=== PATIENT | male | born 1925 | race Caucasian/White ===

== ENCOUNTER 2016-09-26 08:17 | Observation (INO) | payer OTHER, MEDICARE ==
[~2016-09-26 08:17] MED LIST: ACULAR1 DROP OS; ASPIRIN EC81 MG PO; ATROVENT HFA12.9 GM INH; CEFPODOXIME PR200 MG PO; FLOMAX0.4 MG PO; FUROSEMIDE20 MG PO; GENTAK5 ML OPTH; IPRAT-ALBUT 0.5-3 ML INH; KEFLEX500 MG PO; LISINOPRIL5 MG; LISINOPRIL5 MG PO; METOPROLOL TART50 MG PO; NORCO 10-325 T1 EACH PO; OMEPRAZOLE20 MG PO; ORAL ANALGESIC9 GM MM; PERCOCET 5-3251 EACH PO; PULMICORT0.5 MG/2 M INH
--- NOTE | 2016-09-27 18:35 | EKG ---
[facility] [address] [facility] [place] [address] Signed Sinus rhythm with frequent and consecutive premature ventricular complexes Nonspecific intraventricular block Abnormal ECG No previous ECGs available Confirmed by TOBIAS COULTER MD ([id number] on 09/27/2016 6:35:16 PM Electronically Signed By: TOBIAS COULTER MD 09/27/16 1835 PATIENT NAME: EBER BLACK Electrocardiogram DATE OF : [birth year] PHYSICIAN: TOBIAS COULTER MD REPORT #: [id number] REPORT IS CONFIDENTIAL AND NOT TO BE RELEASED WITHOUT AUTHORIZATION
--- NOTE | 2016-09-27 18:36 | EKG ---
[facility] [address] [place] [address] Signed Sinus bradycardia Nonspecific intraventricular block Abnormal ECG When compared with ECG of 26-SEP-2016 08:52, (Unconfirmed) premature ventricular complexes are no longer present Confirmed by TOBIAS COULTER MD ([id number] on 09/27/2016 6:36:00 PM Electronically Signed By: TOBIAS COULTER MD 09/27/16 1836 PATIENT NAME: EBER BLACK Electrocardiogram DATE OF : [birth year] PHYSICIAN: TOBIAS COULTER MD REPORT #: [id number] REPORT IS CONFIDENTIAL AND NOT TO BE RELEASED WITHOUT AUTHORIZATION
[2017-04-09] MEDS ORDERED: VENTOLIN HFA18 GM INH (12:18)
[2017-04-09] MEDS ORDERED: PLAVIX75 MG PO (12:23)
[2017-04-09] MEDS ORDERED: OXYCODONE HCL10 MG PO (12:27)
[2017-04-09] MEDS ORDERED: PROSTATE THERA1 EACH PO (12:29)
== END 2016-09-26 16:40 | disposition home or self-care (01) ==
LOC: ED 08:17 → MS 08:19
PROVIDERS: ADMIT Internal Medicine
DX: R77.8 Other specified abnormalities of plasma proteins (principal); R11.0 Nausea; I73.9 Peripheral vascular disease, unspecified; I25.2 Old myocardial infarction; Z86.73 Personal history of transient ischemic attack (TIA), and cerebral infarction without residual deficits; Z87.891 Personal history of nicotine dependence; Z85.51 Personal history of malignant neoplasm of bladder; Z95.820 Peripheral vascular angioplasty status with implants and grafts; Z88.1 Allergy status to other antibiotic agents; Z88.2 Allergy status to sulfonamides; Z79.82 Long term (current) use of aspirin; Z79.891 Long term (current) use of opiate analgesic; Z79.51 Long term (current) use of inhaled steroids; Z79.899 Other long term (current) drug therapy
CPT/HCPCS: 36415; 71010; 80053; 81001; 84484; 85025; 93005; 93010; 94640; 96361; 96374; 99284; 99285; G0378; J2405; J7030